=== PATIENT | male | born 1985 | race Caucasian/White ===

== ENCOUNTER 2016-07-20 23:11 | Emergency (ER) | payer SELFPAY ==
[2016-07-20] MEDS ORDERED: KETOROLAC TROMETHAMINE INJ 60 MG/2 ML VIAL IM ONE (23:12)
[2016-07-20] MEDS ORDERED: SODIUM CHLORIDE 0.9% 1000ML 1,000 ML IVS ONE (23:13)
[2016-07-20] MEDS ORDERED: KETOROLAC TROMETHAMINE INJ 30 MG/ML VIAL IM ONE (23:13)
[2016-07-20] MEDS ORDERED: ONDANSETRON ODT 8 MG TAB SL SCH (23:30)
[2016-07-21] MEDS ORDERED: HYDROmorphone HCL INJ 2 MG/ML VIAL IV SCH (00:30)
--- NOTE | 2016-07-21 01:07 | ED.PDOC ---
History of Present Illness - General Chief Complaint: Abdominal Pain Stated Complaint: lower abd pain Time Seen by Provider: 07/20/16 23:13 Source: patient Exam Limitations: no limitations - History of Present Illness Initial Comments: The patient is a 31-year-old female presenting secondary to acute severe onset of right sided flank and abdominal pain. The patient had the pain started approximately 15-20 minutes prior to arrival. It is very severe. He is diaphoretic upon arrival. He cannot remain still. He does have right-sided costovertebral angle tenderness to percussion. No symptoms prior. He was playing video games at the onset. He did have mild radiation down to his right testicle briefly. Timing/Duration: 1/2 hour Severity: severe Improving Factors: movement Worsening Factors: rest Associated Symptoms: diaphoresis, loss of appetite, nausea/vomiting Allergies/Adverse Reactions: Allergies NO KNOWN ALLERGY Allergy (Verified 07/20/16 23:23) Home Medications: Ambulatory Orders Tramadol HCl 50 mg PO Q6H PRN #30 tab 07/21/16 Review of Systems - Review of Systems Constitutional: States: diaphoresis, malaise EENTM: States: no symptoms reported Respiratory: States: no symptoms reported Cardiology: States: no symptoms reported Gastrointestinal/Abdominal: States: abdominal pain, nausea Genitourinary: States: dysuria Musculoskeletal: States: back pain Skin: States: no symptoms reported Neurological: States: no symptoms reported Endocrine: States: excessive sweating All other Systems: No Change from Baseline Past Medical History (General) - Patient Medical History Hx Stroke: No Hx Asthma: No Hx of COPD: No Hx Cardiac Disorders: No Hx Congestive Heart Failure: No Hx Diabetes: No Hx Renal Disease: No Hx Cancer: No Surgical History: other - Vaccination History Hx Tetanus, Diphtheria Vaccination: No Hx Influenza Vaccination: No Hx Pneumococcal Vaccination: No - Social History Hx Tobacco Use: Yes Hx Alcohol Use: No Family Medical History - Family History Mother Family History: Unknown Physical Exam - Physical Exam General Appearance: Alert, Anxious, Obvious distress Eye Exam: bilateral normal Ears, Nose, Throat: normal ENT inspection, normal pharynx Neck: non-tender, full range of motion, supple Respiratory: chest non-tender, lungs clear, normal breath sounds, no respiratory distress, no accessory muscle use Cardiovascular/Chest: normal peripheral pulses, regular rate, rhythm, no edema Peripheral Pulses: radial,right: 2+, radial,left: 2+, dorsalis pedis,right: 2+, dorsalis pedis,left: 2+, posterior tibialis,right: 2+, posterior tibialis,left: 2+ Gastrointestinal/Abdominal: non tender, soft Rectal Exam: deferred Back Exam: CVA tenderness (R) Extremity: normal range of motion, non-tender, normal inspection, no pedal edema , normal capillary refill Neurologic: alert, normal mood/affect, oriented x 3 Skin Exam: diaphoresis Comments: Vital Signs - 24 hr 07/20/16 07/21/16 23:17 00:26 Temperature 97.8 F Pulse Rate [ 103 H 89 left] Respiratory 18 18 Rate Blood Pressure 128/78 156/101 [left] O2 Sat by Pulse 98 98 Oximetry Progress - Progress Progress: 07/21/16 01:08 the patient is a 31-year-old male presenting to the emergency room secondary to right-sided abdominal and back pain very severe in nature and acute in onset. Urinalysis is consistent with ureterolithiasis as is the clinical presentation. The patient needs to increase his fluid intake. He received IV fluids here today along with a dose of Toradol and Dilaudid. He will receive a prescription for tramadol for as needed use for pain control over the next few days. If he is still having significant pain after 5 days then he may warrant a reevaluation. he is to return for any acute worsening or fever. He needs to follow up with a primary care doctor next week. - Results/Orders Results/Orders: Laboratory Tests 07/21/16 00:17 Urine Color Reina Urine Appearance Clear Urine pH 7.0 Ur Specific Bath 1.020 Urine Protein 100 H Urine Glucose (UA) Negative Urine Ketones Trace Urine Blood Moderate H Urine Nitrite Negative Urine Bilirubin Small H Urine Urobilinogen 1.0 Ur Leukocyte Esterase Negative Urine RBC 20-30 H Urine WBC 5-10 H Ur Epithelial Cells 0 Urine Bacteria Rare Urine Mucus Small Departure - Departure Clinical Impression: Ureterolithiasis Disposition: Discharge to Home or Self Care Condition: Fair Departure Forms: ED Discharge - Pt. Copy, Patient Portal Self Enrollment Instructions: DI for Kidney Stones Diet: regular diet Activity: increase activity as tolerated Prescriptions: Tramadol HCl 50 mg PO Q6H PRN #30 tab PRN Reason: Pain -- Moderate To Severe Home Medications: Ambulatory Orders Tramadol HCl 50 mg PO Q6H PRN #30 tab 07/21/16 Additional Instructions: the patient is a 31-year-old male presenting to the emergency room secondary to right-sided abdominal and back pain very severe in nature and acute in onset. Urinalysis is consistent with ureterolithiasis as is the clinical presentation. The patient needs to increase his fluid intake. He received IV fluids here today along with a dose of Toradol and Dilaudid. He will receive a prescription for tramadol for as needed use for pain control over the next few days. If he is still having significant pain after 5 days then he may warrant a reevaluation. he is to return for any acute worsening or fever. He needs to follow up with a primary care doctor next week.
[2016-07-21] MEDS ORDERED: HYDROcodone 5MG/APAP 325MG 1 EA TAB PO ONE (01:10)
[2016-07-21 01:29] VITALS: BP 153/99; TEMP 98.2; O2SAT 95
== END 2016-07-21 01:25 | disposition home or self-care (01) ==
LOC: ER 23:11
DX: N20.1 Calculus of ureter (principal); Z87.891 Personal history of nicotine dependence
CPT/HCPCS: 81001; J1170; J1885; J7030

== ENCOUNTER 2018-08-11 21:44 | Emergency (ER) | payer BC ==
[2018-08-11] MEDS ORDERED: SULFA/TRIMETH 800/160 (DS) TAB 1 EA TAB PO ONE (21:59)
[2018-08-11 22:01] VITALS: TEMP 98.8; O2SAT 97
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
[2018-08-11 22:22] VITALS: BP 140/96
== END 2018-08-11 22:22 | disposition home or self-care (01) ==
LOC: ER 21:44 → SUPCPDRO 21:44 → ER 22:22
DX: T24.332A Burn of third degree of left lower leg, initial encounter (principal); X12.XXXA Contact with other hot fluids, initial encounter; Y99.0 Civilian activity done for income or pay; Y92.69 Other specified industrial and construction area as the place of occurrence of the external cause; Z87.891 Personal history of nicotine dependence

== ENCOUNTER → 2018-09-17 | Outpatient (CLI) | payer BC | LOC: GMAE 11:17 | PROVIDERS: ATTEND Family Medicine | DX: R35.1 Nocturia (principal); R94.4 Abnormal results of kidney function studies ==

== ENCOUNTER 2018-12-11 16:11 | Emergency (ER) | payer BC, OTHER ==
[2018-12-11] MEDS ORDERED: ACETAMINOPHEN 325 MG TAB PO ONE (16:57)
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
[2018-12-11] MEDS ORDERED: KETOROLAC TROMETHAMINE INJ 30 MG/ML VIAL IM ONE (17:41)
[2018-12-11] MEDS ORDERED: CYCLOBENZAPRINE TAB (ER DISP) 10 MG TAB PO ONE (18:46)
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
[2018-12-11 19:44] VITALS: BP 149/98; TEMP 97.8; O2SAT 97
== END 2018-12-11 19:45 | disposition home or self-care (01) ==
LOC: ER 16:11
DX: S43.402A Unspecified sprain of left shoulder joint, initial encounter (principal); M54.12 Radiculopathy, cervical region; Z87.891 Personal history of nicotine dependence; V49.49XA Driver injured in collision with other motor vehicles in traffic accident, initial encounter; Y92.410 Unspecified street and highway as the place of occurrence of the external cause
CPT/HCPCS: 73030; J1885